=== PATIENT | female | born 1990 | race African-American/Black ===

== ENCOUNTER 2023-03-31 15:11 | Outpatient (AMB) | payer OTHER, SELFPAY ==
--- NOTE | 2023-03-31 15:21 | A.OFFVIS_ITS ---
Intake Vital Signs 03/31/23 15:24 Height 5 ft 7 in Weight 140 lb BMI 21.9 BP 140/80 H Pulse 72 Pulse Oximetry (%) 98 Intake Visit Reasons: Ref.Tapest[employer] Mobile /HIV Allergies No Known Allergies Allergy (Verified 03/31/23 15:25) HPI Ref.Tapest[employer] /HIV HPI Details She presents for initial evaluation for HIV care. She has been positive for several years she says. She reports getting care and medication from [facility] and I called there and they have no record of her getting medication in last two years. She has positive test [facility] I found 2012. She ws RPR negative then and chlamydia negative. She is homeless and referred by Amee CABALLERO at [facility] [phone]. She tells me her phone active tomorrow is [phone] and is now moving to [place] and wants to be seen at [facility]. She had previously been seen at [facility]. She is a transwoman. She has OUD and had been on methadone in past and is interested in it in future. She is very sleepy today. [facility] Medical History (Updated 03/31/23 @ 23:04 by Sheba Kent MD) HIV (human immunodeficiency virus infection) Opioid use disorder Review of Systems Const All systems reviewed & are unremarkable except as noted in HPI and below Physical Exam Vital Signs: Last Vital Signs Pulse 72 03/31/23 15:24 BP 140/80 H 03/31/23 15:24 Pulse Ox 98 03/31/23 15:24 BMI result Body Mass Index 21.9 Const General: cooperative Orientation/consciousness: patient oriented x3 HEENT Head: Yes normal to inspection Mouth: Normal oral and palatal mucosa present Eyes General: appearance normal, both eyes and all related structures Pupils: Equal, round and reactive pupils present Resp Effort & Inspection: normal respiratory effort Cardio Rate: regular rate Rhythm: regular rhythm GI Palpation (GI): Soft to palpation and nontender General: Yes no CVA tenderness Back/Spine/Pelvis Back: no CVA tenderness Skin General skin exam: no rashes or lesions noted Neuro General: patient oriented x3 Cranial nerves: Yes CN's II-XII intact bilaterally and Yes Equal, round and reactive pupils present Extrem General: Yes normal to inspection Psych Other: sleepy Appearance: grossly normal Assessment & Plan Assessment & Plan (1) HIV (human immunodeficiency virus infection): Code(s): B20 - Human immunodeficiency virus [HIV] disease Plan: I did start Biktarvy and sent to [facility]. See for labs when done (2) Opioid use disorder: Code(s): F11.90 - Opioid use, unspecified, uncomplicated Medications: New ghclpkibt-vxrzbudc-xkbbydf ala 50-200-25 mg (Biktarvy) 1 tab PO DAILY 30 days 30 tabs 0RF Coding Level of Care Code New Pt Level 3 (92065) Diagnoses HIV (human immunodeficiency virus infection) B20 Opioid use disorder F11.90
[2023-03-31 15:24] VITALS: BP 140/80; PULSE 72; O2SAT 98; BMI 21.9
== END 2023-03-31 15:44 | disposition home or self-care (01) ==
LOC: HO.HID 15:11
PROVIDERS: Visit Provider Internal Medicine
DX: B20 Human immunodeficiency virus [HIV] disease (principal); F11.90 Opioid use, unspecified, uncomplicated
CPT/HCPCS: 99203

== ENCOUNTER → 2023-03-31 15:11 | Outpatient (BNVA) | payer OTHER, SELFPAY | PROVIDERS: Visit Provider Internal Medicine | DX: B20 Human immunodeficiency virus [HIV] disease (principal); F11.20 Opioid dependence, uncomplicated; Z59.00 Homelessness unspecified | CPT/HCPCS: 99202 ==

== ENCOUNTER 2023-04-22 14:54 | Outpatient (REF) | payer OTHER, SELFPAY ==
[2023-04-22 16:08] LABS: MANUAL DIFF FLAG NO
[2023-04-22 16:12] LABS: Basophils Percent Auto 0.7 % (0-2); Eosinophils Absolute Auto 0.1 X10*3/uL (0.0-0.4); Eosinophils Percent Auto 1.2 % (0-4); Hematocrit 35.8 % (37.0-47.0); Hemoglobin 11.6 g/dl (12.0-16.0); Imm Gran Abs Auto 0.01 X10*3/uL (0.00-0.03); Imm Gran Pct Auto 0.2 % (0.0-0.4); Lymphocytes Absolute Auto 1.3 X10*3/uL (1.2-4.9); Lymphocytes Percent Auto 30.9 % (20-40); Mean Corpuscular HGB Conc 32.4 g/dl (31.0-35.0); Mean Corpuscular Hemoglobin 28.7 pg (27.0-33.0); Mean Corpuscular Volume 88.6 fL (80.0-98.0); Mean Platelet Volume 9.7 fL (9.4-12.3); Monocytes Absolute Auto 0.5 X10*3/uL (0.1-1.2); Monocytes Percent Auto 11.1 % (2-11); Neutrophils Absolute Auto 2.4 x10*3/uL (2.0-8.3); Neutrophils Percent Auto 55.9 % (45-73); Platelet Count 306 X10*3/uL (160-400); Red Blood Count 4.04 X10*6/uL (4.20-5.50); Red Cell Distribution Width 11.6 % (11.0-16.0); White Blood Count 4.3 X10*3/uL (4.8-10.8)
[2023-04-22 16:24] LABS: Alanine Aminotransferase 18 U/L (0-31); Albumin Level 3.8 g/dL (3.5-5.0); Alkaline Phosphatase 71 U/L (39-117); Anion Gap 10 (12-20); Aspartate Amino Transferase 29 U/L (5-31); Bilirubin Direct 0.2 mg/dL (0.0-0.5); Bilirubin Total 0.5 mg/dL (0.0-1.0); Blood Urea Nitrogen 17 mg/dL (9-16); Calcium 9.3 mg/dL (8.4-10.2); Carbon Dioxide 26 mmol/L (22-29); Chloride 105 mmol/L (96-108); Estimated Glomerular Filt Rate 52; Glucose Random 102 mg/dL (60-115); Potassium 4.3 mmol/L (3.3-5.1); Sodium 137 mmol/L (135-145)
[2023-04-23 03:45] LABS: Syphilis Screen Nonreactive (Nonreactive)
[2023-04-23 04:10] LABS: HBS Num1 46.87 mIU/mL (0-7.99); HBc Num1 0.06 S/CO (0.00-0.79); HBsAGNum1 0.36 S/CO (0.00-0.99); Hepatitis A Antibody IgG REACTIVE (Nonreactive); Hepatitis B Core Antibody Nonreactive (Nonreactive); Hepatitis B Surface Antigen Negative (Negative); ~Hepatitis A Antibody IgG 3.29 S/CO (0.00-0.99); ~Hepatitis B Surface Antibody REACTIVE (Nonreactive)
[2023-04-23 10:38] LABS: Absolute CD3 Count 1293 cells/uL (840-3060); Absolute CD4 Count 634 cells/uL (490-1740); Absolute CD8 Count 621 cells/uL (180-1170); Absolute Lymphocytes 1465 cells/uL (850-3900); CD4 CD8 Ratio 1.02 (0.86-5.00); Percent CD3 Cells 88 % (57-85); Percent CD4 Cells 43 % (30-61); Percent CD8 Cells 42 % (12-42)
[2023-04-23 13:13] LABS: Mumps Virus IgG Antibody <9.00 AU/mL; Rubella IgG Antibody 4.39 Index; Rubeola IgG (Measles) >300.00 AU/mL; Toxoplasma IgG Antibody <7.20 IU/mL; Toxoplasma IgM Antibody <8.00 AU/mL
[2023-04-23 16:08] LABS: HIV RNA PCR Qn Copies 9650 copies/mL (NOT DETECTED); HIV RNA PCR Qn Log Copies 3.98 (NOT DETECTED)
[2023-04-25 05:12] LABS: TS Negative Control Passed; TS Panel A 0; TS Panel B 0; TS Positive Control Passed; TSpotTB Negative (Negative)
[2023-04-26 02:59] LABS: C. Trachomatis RNA TMA, Throat NOT DETECTED; N. gonorrhoeae RNA TMA, Throat NOT DETECTED
[2023-04-29 23:39] LABS: Glucose-6-Phosphate Dehydrogen 2.2 U/g Hgb (7.0-20.5)
[2023-05-06 19:33] LABS: HIV Genotype DETECTED
== END 2023-04-22 14:55 | disposition home or self-care (01) ==
LOC: HO.HHCL 14:54
PROVIDERS: Visit Provider Internal Medicine
DX: B20 Human immunodeficiency virus [HIV] disease (principal)
CPT/HCPCS: 36415; 80053; 82248; 82955; 85025; 86359; 86360; 86481; 86704; 86706; 86708; 86735; 86762; 86765; 86777; 86778; 86780; 86787; 87340; 87491; 87536; 87591; 87900; 87901; 87906

== ENCOUNTER 2024-10-13 12:14 | Outpatient (REF) | payer MEDICAID, SELFPAY ==
[2024-10-13 13:33] LABS: Basophils Percent Auto 0.6 % (0-2); Eosinophils Absolute Auto 0.1 X10*3/uL (0.0-0.4); Eosinophils Percent Auto 1.1 % (0-4); Hematocrit 37.1 % (37.0-47.0); Hemoglobin 12.5 g/dl (12.0-16.0); Imm Gran Abs Auto 0.06 X10*3/uL (0.00-0.03); Imm Gran Pct Auto 1.1 % (0.0-0.4); Lymphocytes Absolute Auto 1.7 X10*3/uL (1.2-4.9); Lymphocytes Percent Auto 31.3 % (20-40); MANUAL DIFF FLAG SCAN; Mean Corpuscular HGB Conc 33.7 g/dl (31.0-35.0); Mean Corpuscular Hemoglobin 29.6 pg (27.0-33.0); Mean Corpuscular Volume 87.9 fL (80.0-98.0); Monocytes Absolute Auto 0.4 X10*3/uL (0.1-1.2); Monocytes Percent Auto 8.2 % (2-11); Neutrophils Absolute Auto 3.1 x10*3/uL (2.0-8.3); Neutrophils Percent Auto 57.7 % (45-73); PLT CLUMP 1; Red Blood Count 4.22 X10*6/uL (4.20-5.50); SCAN SMEAR FLAG 1
[2024-10-13 13:34] LABS: White Blood Count 5.3 X10*3/uL (4.8-10.8)
[2024-10-13 13:39] LABS: Alanine Aminotransferase 43 U/L (0-31); Albumin Level 4.2 g/dL (3.5-5.0); Alkaline Phosphatase 106 U/L (39-117); Anion Gap 12 (12-20); Aspartate Amino Transferase 54 U/L (5-31); Bilirubin Total 0.5 mg/dL (0.0-1.0); Blood Urea Nitrogen 19 mg/dL (9-16); Calcium 9.1 mg/dL (8.4-10.2); Carbon Dioxide 21 mmol/L (22-29); Chloride 106 mmol/L (96-108); Cholesterol 172 mg/dL (<200); Estimated Glomerular Filt Rate 36; Glucose Random 97 mg/dL (60-115); HDL Cholesterol 46 mg/dL (>40); LDL Cholesterol Calculated 98 mg/dL (<100); Potassium 4.3 mmol/L (3.3-5.1); Sodium 135 mmol/L (135-145); Total Protein 9.3 g/dL (6.5-8.0); Triglycerides 143 mg/dL (<150)
[2024-10-13 13:40] LABS: Color Urine Yellow; Glucose Urine UA Negative (Negative); Leukocyte Esterase Urine Negative (Negative); Nitrite Urine Negative (Negative); PH 5.5 (5.0-9.0); Specific Gravity - Urine 1.015 (1.005-1.025); UMIC TRIGGER UACC YES; Urine Blood Negative (Negative); Urine Ketones Negative (Negative); Urine Protein 30 (1+) mg/dL (Neg-Trace)
[2024-10-13 13:43] LABS: Appearance Urine Hazy
[2024-10-13 13:45] LABS: Bacteria Urine None Seen (None Seen); Hyaline Casts Urine 0-2 /LPF (0-2); RBC Urine 0-2 /HPF (0-2); WBC Urine 0-5 /HPF (0-5)
[2024-10-13 13:59] LABS: Mean Platelet Volume 10.4 fL (9.4-12.3); Platelet Count 241 X10*3/uL (160-400); SLIDE REVIEW VERIFIED
[2024-10-13 14:05] LABS: Reflex LDLD? No
[2024-10-13 16:20] LABS: CT PCR NOT DETECTED (Not Detect.); NG PCR NOT DETECTED (Not Detect.)
[2024-10-14 03:31] LABS: Syphilis Screen Nonreactive (Nonreactive)
[2024-10-14 03:38] LABS: ~HepC Num1 15.87 S/CO (0.00-0.79); ~Hepatitis C Antibody Reactive (Nonreactive)
[2024-10-16 08:29] LABS: TS Negative Control Passed; TS Panel A 0; TS Panel B 1; TS Positive Control Passed; TSpotTB Negative (Negative)
[2024-10-17 13:34] LABS: HCV Log PCR 5.77 Log IU/mL (NOT DETECTED); HepC Viral Load 595000 IU/mL (NOT DETECTED)
[2024-10-17 14:54] LABS: HIV RNA PCR Qn Copies NOT DETECTED copies/mL (NOT DETECTED); HIV RNA PCR Qn Log Copies NOT DETECTED (NOT DETECTED)
[2024-10-18 18:13] LABS: Absolute CD3 Count 1092 cells/uL (840-3060); Absolute CD4 Count 444 cells/uL (490-1740); Absolute CD8 Count 596 cells/uL (180-1170); Absolute Lymphocytes 1187 cells/uL (850-3900); CD4 CD8 Ratio 0.74 (0.86-5.00); Percent CD3 Cells 92 % (57-85); Percent CD4 Cells 37 % (30-61); Percent CD8 Cells 50 % (12-42)
== END 2024-10-13 12:15 | disposition home or self-care (01) ==
LOC: HO.HHCL 12:14
PROVIDERS: Visit Provider Internal Medicine
DX: Z21 Asymptomatic human immunodeficiency virus [HIV] infection status (principal)
CPT/HCPCS: 36415; 80053; 80061; 81001; 85025; 86359; 86360; 86481; 86780; 86803; 87491; 87522; 87536; 87591

== ENCOUNTER 2024-10-17 09:26 | Emergency (ER) | payer OTHER, SELFPAY ==
--- NOTE | ~2024-10-17 | CT_ITS ---
EXAMINATION: CT PELVIS WITH CONTRAST CLINICAL INFORMATION: Perirectal abscess. COMPARISON: None available. TECHNIQUE: Helical scanning was performed with submillimeter collimation through the pelvis with the use of oral contrast and during bolus intravenous injection of 85 mL of Omnipaque 350 intravenous contrast. Sagittal and coronal multiplanar 2-D reconstructions were obtained. This CT examination was performed using dose optimization techniques as appropriate, variously including the following: *Automated exposure control *Adjustment of mA and/or kV according to patient size (this includes techniques or standardized protocols for targeted exams where dose is matched to indication/reason for exam; i.e. extremities or head) *Use of iterative reconstruction technique DLP: 454 mGy centimeter. FINDINGS: PELVIS: There is a 2.6 cm peripheral enhancing fluid collection in the posterior midline of the anus/perineum 6:00 position. No fluid collections in the pelvis. The appendix is normal. Abundant stool without intestinal obstruction pattern. Bladder is fluid-filled. No aneurysm or dissection distal abdominal aorta or iliac arteries. Nonspecific prominent inguinal lymph nodes. No acute fracture or dislocation in either hip. No acute fracture in the pelvis. No lytic or blastic lesions. No acute fracture or listhesis in the lower lumbar spine. OSSEOUS STRUCTURES: 2.6 cm abscess, 6:[address] the [address]us. CT/CT pelvis w IV con IMPRESSION: Unremarkable examination. Electronically signed by: Shiva Polanco MD 10/17/2024 03:10 PM [facility]
[2024-10-17 09:31] VITALS: BP 143/83; PULSE 88; RESP 20; TEMP 36.9; O2SAT 96; BMI 34.4
--- NOTE | 2024-10-17 13:10 | ED.SKABFB ---
HPI - Skin/Abscess/Foreign Bdy General Chief complaint: Skin/Abscess/Foreign Body Stated complaint: Abscess groin area Time Seen by Provider: 10/17/24 13:10 Source: patient, RN notes reviewed and old records reviewed Limitations: no limitations History of Present Illness ED Provider: Abilio Samson PA-C HPI narrative: 34 yo transwoman with history of HIV on HAART, opioid use disorder on methadone who presents to the ER for evaluation of a tender, enlarging region near the anus for the last 4-5 days. She reports the area is very tender and it has been getting bigger. She denies any drainage from the site. She denies any anal intercourse. Had a normal BM today. No fever or chills. No N/V/D or abdominal pain. MD complaint: abscess/boil Onset (ago): day(s) (5) Location: genitals Severity: moderate Severity scale (1-10): 6 Quality: stabbing Pain Consistency: constant Relieving factors: rest Exacerbating factors: palpation and movement Context: none Treatments prior to arrival: none Related Data Previous Rx's ?Medication ?Instructions ?Recorded bictegravir 50 mg-emtricitabine 1 tab PO DAILY 30 days #30 tabs 03/31/23 200 mg-tenofovir alafenam 25 mg tablet (Biktarvy) cephalexin 500 mg tablet 500 mg PO Q6H 7 days #28 tabs 10/17/24 doxycycline monohydrate 100 mg 100 mg PO BID #14 caps 10/17/24 capsule Allergies Allergy/AdvReac Type Severity Reaction Status Date / Time No Known Allergies Allergy Verified 10/17/24 09:34 Review of Systems Review of Systems: Yes all other systems are reviewed and are negative PMFSH Past Medical History Medical History (Updated 10/17/24 @ 15:18 by FEDERICO Kitchen) HIV (human immunodeficiency virus infection) Opioid use disorder Social History Social History (System 09/19/24 @ 10:50 by Rachel Cabrera) Advance Directives: No Advance Directives Information Provided: No Do you have a plan to hurt others: No Plan Physical Exam Vital Signs: Vital Signs: Last Vital Signs Temp 98.0 F 10/17/24 15:30 Pulse 82 10/17/24 15:30 Resp 16 10/17/24 15:30 BP 142/88 H 10/17/24 15:30 Pulse Ox 100 10/17/24 15:30 O2 Del Method Room Air 10/17/24 09:31 BMI result Body Mass Index 34.4 Appearance: Alert. Oriented X3. No acute distress. Head: normocephalic, atraumatic. Eyes: Pupils equal, round and reactive to light. ENT: Pharynx normal. No tonsillar swelling or exudate. Neck: Normal inspection. Neck supple. CVS: Normal heart rate and rhythm. Pulses normal. Respiratory: No respiratory distress. Breath sounds normal. Abdomen: Soft and nontender. +BS x4 Genitals: normal inspection of the penis and testicles. there is tenderness of the perineum with induration, no fluctuance. Skin: Skin warm and dry. Normal skin color. Normal skin turgor. No rashes. Extremities: No lower extremity edema. No joint swelling. Neuro/psych: Oriented X 3. No motor deficit. No sensory deficit. CN II-XII intact. Normal speech and cognition. Medications Administered Discontinued Medications Generic Name Dose Route Start Last Admin Trade Name Freq PRN Reason Stop Dose Admin Cephalexin HCl 500 mg 10/17/24 15:19 10/17/24 15:41 Cephalexin 500 Mg Capsule PO 10/17/24 15:20 500 mg ONCE ONE Administration Doxycycline Monohydrate 100 mg 10/17/24 15:19 10/17/24 15:41 Doxycycline Monohydrate 100 Mg Capsule PO 10/17/24 15:20 100 mg ONCE ONE Administration Iohexol 100 ml 10/17/24 14:31 10/17/24 14:36 Iohexol 350 Mg/Ml 100 Ml Infus..Btl IV 10/17/24 14:32 85 ml ONCE ONE Administration Medical Decision Making Medical Decision Making [facility] Narrative: 34 yo transwomen with history of HIV, unsure if compliant with HAART presenting with perianal pain and swelling. exam c/w indurated area in the perineum. concern for possible abscess labs reassuring. not septic. CT scan not showing any drainable collection will start on abx and have her f/u with PCP and general surgery given strict return precautions to return as this can develop into a life threatening infection Differential Diagnosis Differential Diagnoses: The differential diagnosis associated with the presentation includes perirectal abscess, patricia's gangrene, folliculitis, retained FB Admission/Observation Consideration of admission/observation: Escalation of care including admission/observation considered Lab Data [facility] Lab Attestation statement: I reviewed the patient's lab results. mild hyperglycemia no anion gap, no leukocytosis, mild anemia 10/17/24 13:48 10/17/24 13:48 Labs: Lab Results 10/17/24 Range/Units 13:48 WBC 7.7 (4.8-10.8) X10*3/uL RBC 4.20 (4.20-5.50) X10*6/uL Hgb 12.6 (12.0-16.0) g/dl Hct 37.6 (37.0-47.0) % MCV 89.5 (80.0-98.0) fL MCH 30.0 (27.0-33.0) pg MCHC 33.5 (31.0-35.0) g/dl RDW 11.9 (11.0-16.0) % Plt Count 253 (160-400) X10*3/uL MPV 9.9 (9.4-12.3) fL Immature Gran % (Auto) 0.5 H (0.0-0.4) % Neut % (Auto) 69.9 (45-73) % Lymph % (Auto) 19.9 L (20-40) % Hamblen % (Auto) 8.8 (2-11) % Eos % (Auto) 0.4 (0-4) % Baso % (Auto) 0.5 (0-2) % Lymph # (Auto) 1.5 (1.2-4.9) X10*3/uL Hamblen # (Auto) 0.7 (0.1-1.2) X10*3/uL Eos # (Auto) 0.0 (0.0-0.4) X10*3/uL Baso # (Auto) 0.0 (0.0-0.2) X10*3/uL Abs Immat Gran (auto) 0.04 H (0.00-0.03) X10*3/uL Absolute Neuts (auto) 5.4 (2.0-8.3) x10*3/uL Absolute Nucleated RBC 0.000 (0.0-0.012) X10*3/uL Nucleated RBC % (auto) 0.0 (0.0-0.2) /100WBC ESR 19 (0-20) MM/HR Sodium 138 (135-145) mmol/L Potassium 4.3 (3.3-5.1) mmol/L Chloride 108 (96-108) mmol/L Carbon Dioxide 22 (22-29) mmol/L Anion Gap 12 (12-20) BUN 14 (9-16) mg/dL Creatinine 1.36 (0.5-1.4) mg/dL Estim Creat Clear Calc 69.3 Estimated GFR 44 Random Glucose 140 H (60-115) mg/dL Calcium 9.1 (8.4-10.2) mg/dL Magnesium 1.8 (1.6-2.6) mg/dL Total Bilirubin 0.4 (0.0-1.0) mg/dL Direct Bilirubin 0.1 (0.0-0.5) mg/dL AST 45 H (5-31) U/L ALT 36 H (0-31) U/L Alkaline Phosphatase 99 (39-117) U/L C-Reactive Protein 0.84 H (< or = 0.50) mg/dL Total Protein 8.9 H (6.5-8.0) g/dL Albumin 3.9 (3.5-5.0) g/dL Independent Interpretation I performed an independent interpretation of an: CT Scan Interpretation: no rim enhancing lesion or appreciated stranding in the rectal area Radiology Impression Discussion of test interpretation with radiology: I have reviewed the radiologist's reading. External Record Review External record reviewed: Office record, Outpatient record and Prior outpatient labs Prescription Management I considered prescription management with: Pain Medication and Antibiotic Chronic Conditions Patient?s care impacted by: Other (HIV) Social Determinants Patient?s care significantly limited by Social Determinants of Health including: Problems related to primary support group and Other Social Determinant of Health Critical Care Time Critical Care Time Critical Care Time: No Discharge Plan Discharge Clinical Impression: Cellulitis Qualifiers: Site of cellulitis: buttock Qualified Code(s): L03.317 - Cellulitis of buttock Patient Disposition: Home, Self-Care Instructions: Cellulitis (ED), Warm Compress or Soak (ED) Additional Instructions: your labs and CT scan were reassuring. no abscess to drain Take the prescribed antibiotics as directed, complete the entire course and do not miss any doses use warm compresses several times per day If you develop new or worsening symptoms call 911 or come back to the ER for further evaluation. Prescriptions: New doxycycline monohydrate 100 mg capsule 100 mg PO BID Qty: 14 0RF cephalexin 500 mg tablet 500 mg PO Q6H 7 Days Qty: 28 0RF No Action Biktarvy 50-200-25 mg tablet 1 tab PO DAILY 30 Days Qty: 30 0RF Referrals: [facility] General Surgeons [Provider Group] Interventions: ED Discharge Assessment Last Done: 10/17/24 15:30 Discharge Date/Time: 10/17/24 15:30 Print Language: Sami
[2024-10-17 13:54] LABS: MANUAL DIFF FLAG NO
[2024-10-17 13:56] LABS: Basophils Percent Auto 0.5 % (0-2); Eosinophils Percent Auto 0.4 % (0-4); Hematocrit 37.6 % (37.0-47.0); Hemoglobin 12.6 g/dl (12.0-16.0); Imm Gran Abs Auto 0.04 X10*3/uL (0.00-0.03); Imm Gran Pct Auto 0.5 % (0.0-0.4); Lymphocytes Absolute Auto 1.5 X10*3/uL (1.2-4.9); Lymphocytes Percent Auto 19.9 % (20-40); Mean Corpuscular HGB Conc 33.5 g/dl (31.0-35.0); Mean Corpuscular Volume 89.5 fL (80.0-98.0); Mean Platelet Volume 9.9 fL (9.4-12.3); Monocytes Absolute Auto 0.7 X10*3/uL (0.1-1.2); Monocytes Percent Auto 8.8 % (2-11); Neutrophils Absolute Auto 5.4 x10*3/uL (2.0-8.3); Neutrophils Percent Auto 69.9 % (45-73); Platelet Count 253 X10*3/uL (160-400); Red Cell Distribution Width 11.9 % (11.0-16.0); White Blood Count 7.7 X10*3/uL (4.8-10.8)
[2024-10-17 14:10] LABS: Alanine Aminotransferase 36 U/L (0-31); Albumin Level 3.9 g/dL (3.5-5.0); Alkaline Phosphatase 99 U/L (39-117); Anion Gap 12 (12-20); Aspartate Amino Transferase 45 U/L (5-31); Bilirubin Direct 0.1 mg/dL (0.0-0.5); Bilirubin Total 0.4 mg/dL (0.0-1.0); Blood Urea Nitrogen 14 mg/dL (9-16); C Reactive Protein 0.84 mg/dL (< or = 0.50); Calcium 9.1 mg/dL (8.4-10.2); Carbon Dioxide 22 mmol/L (22-29); Chloride 108 mmol/L (96-108); Creatinine Clr Calc Pharmacy 69.3; Estimated Glomerular Filt Rate 44; Glucose Random 140 mg/dL (60-115); Magnesium 1.8 mg/dL (1.6-2.6); Potassium 4.3 mmol/L (3.3-5.1); Sodium 138 mmol/L (135-145); Total Protein 8.9 g/dL (6.5-8.0)
[2024-10-17 14:35] LABS: Erythrocyte Sedimentation Rate 19 MM/HR (0-20)
[2024-10-17] MEDS: iohexoL 350 MG/ML 100 ML INFUS..BTL IV (14:36)
[2024-10-17 15:30] VITALS: BP 142/88; PULSE 82; RESP 16; TEMP 36.7; O2SAT 100
[2024-10-17] MEDS: cephALEXin 500 MG CAPSULE PO (15:41)
[2024-10-17] MEDS: Doxycycline Monohydrate 100 MG CAPSULE PO (15:41)
== END 2024-10-17 15:30 | disposition home or self-care (01) ==
PROVIDERS: Physician Assistant; Emergency Provider Emergency Medicine Emergency Medical Services
DX: L03.317 Cellulitis of buttock (principal); B20 Human immunodeficiency virus [HIV] disease
CPT/HCPCS: 36415; 72193; 80048; 80076; 83735; 85025; 85652; 86140; 99282; 99284; Q9967

== ENCOUNTER → 2024-10-17 13:17 | Outpatient (BNV) | payer OTHER, SELFPAY | PROVIDERS: Emergency Provider Emergency Medicine Emergency Medical Services; Visit Provider Radiology Diagnostic Radiology | DX: K61.0 Anal abscess (principal) | CPT/HCPCS: 72193 ==

== ENCOUNTER 2024-11-15 14:33 | Outpatient (REF) | payer MEDICAID, SELFPAY ==
[2024-11-15 16:42] LABS: Anion Gap 12 (12-20); Blood Urea Nitrogen 17 mg/dL (9-16); Calcium 9.2 mg/dL (8.4-10.2); Carbon Dioxide 22 mmol/L (22-29); Chloride 107 mmol/L (96-108); Estimated Glomerular Filt Rate 33; Glucose Random 88 mg/dL (60-115); Potassium 4.8 mmol/L (3.3-5.1); Sodium 136 mmol/L (135-145)
== END 2024-11-15 14:34 | disposition home or self-care (01) ==
LOC: HO.HHCL 14:33
PROVIDERS: Visit Provider Internal Medicine Geriatric Medicine
DX: R79.89 Other specified abnormal findings of blood chemistry (principal)
CPT/HCPCS: 36415; 80048

== ENCOUNTER 2024-11-24 15:34 | Outpatient (AMB) | payer MEDICAID, SELFPAY ==
--- NOTE | 2024-11-24 16:00 | HO.NEPHOV ---
Vital Signs 11/24/24 16:05 Height 5 ft 7 in Weight 245 lb 2 oz BMI 38.4 BP 122/80 Blood Pressure Location Lt brachial Position Sitting Pulse 98 Pulse Source Pulse Oximeter Pulse Oximetry (%) 95 Oxygen Delivery Method Room Air Intake Visit Reasons: ENP: Elevated serum creatinine-Voicemail full Curtain Drier Required: No Accompanied by: Self / Same As Patient Allergies No Known Allergies Allergy (Verified 11/24/24 16:05) HPI Comments Details: 34 yo trans woman with history of HIV on HAART was seen in consultation for CKD. She has been HIV positive for several years ( at least close to 15 years). She claims to be compliant with her HAART. She has H/O Hepatitis C( untreated). She has CKD for sometime and her serum creatinine has gone up to 1.76. She claimed to be compliant with her anti retrovirals. She denied any hepatitis B infection. She denies any cardiac disease. She has H/O proteinuria. She denies any active drug use, nausea, vomiting, diarrhea, weight loss, night sweats, CAD, CVA, CHF, PAD, hypertension, DM, epistaxis, skin rashes, joint swelling, hematuria or edema. She had no specific complaints at the time of this office visit. [facility] Medical History (Updated 12/02/24 @ 18:31 by Reji Walter MD) HIV (human immunodeficiency virus infection) Opioid use disorder Surgical History H/O hand surgery Hx of hernia repair H/O knee surgery Family History Mother Diabetes Heart disease Hypertension Cancer Social History (Updated 11/24/24 @ 16:01 by Shruti Le MA) Alcohol intake: never Patient Tobacco Use Status: Never used Tobacco Review of Systems Const All systems reviewed & are unremarkable except as noted in HPI and below Physical Exam Vital Signs: Last Vital Signs Pulse 98 11/24/24 16:05 BP 122/80 11/24/24 16:05 Pulse Ox 95 11/24/24 16:05 Oxygen Delivery Method Room Air 11/24/24 16:05 BMI result Body Mass Index 38.4 Const General: comfortable and no acute distress Orientation/consciousness: patient oriented x3 HEENT Head: Yes normocephalic Mouth: Normal oral and palatal mucosa present Eyes EOM: EOMs intact bilaterally Neck Neck: Yes supple Resp Auscultation: clear to auscultation bilaterally Cardio Jugular venous distension: no JVD Rate: regular rate GI Palpation (GI): Soft to palpation Auscultation: normal bowel sounds General: Yes no CVA tenderness Back/Spine/Pelvis Back: no CVA tenderness Skin General skin exam: no rashes or lesions noted Neuro General: patient oriented x3 and moves all extremities Extrem General: Yes no pedal edema Results Reviewed Nephrology Results: Hgb 12.6 g/dl (12.0-16.0) 10/17/24 WBC 7.7 X10*3/uL (4.8-10.8) 10/17/24 Plt Count 253 X10*3/uL (160-400) 10/17/24 Sodium 136 mmol/L (135-145) 11/15/24 Potassium 4.8 mmol/L (3.3-5.1) 11/15/24 Chloride 107 mmol/L (96-108) 11/15/24 Carbon Dioxide 22 mmol/L (22-29) 11/15/24 BUN 17 mg/dL (9-16) H 11/15/24 Creatinine 1.76 mg/dL (0.5-1.4) H 11/15/24 Calcium 9.2 mg/dL (8.4-10.2) 11/15/24 Urine Protein 30 (1+) mg/dL (Neg-Trace) H 10/13/24 Assessment & Plan Assessment & Plan (1) MARIAMA (acute kidney injury): Code(s): N17.9 - Acute kidney failure, unspecified Category: Medical (2) HIV (human immunodeficiency virus infection): Code(s): B20 - Human immunodeficiency virus [HIV] disease Category: Medical Qualifiers: HIV symptom status: unspecified Qualified Code(s): Z21 - Asymptomatic human immunodeficiency virus [HIV] infection status (3) CKD stage 3a, GFR 45-59 ml/min: Code(s): N18.31 - Chronic kidney disease, stage 3a Category: Medical (4) Proteinuria: Code(s): R80.9 - Proteinuria, unspecified Category: Medical Qualifiers: Proteinuria type: other Qualified Code(s): R80.8 - Other proteinuria Plan Erikah likely has HIVAN. Differential diagnosis is quite broad at this point including medication related MARIAMA . I have ordered imaging studies as well as other W/U. She likely will need renal biopsy. She was encouraged to keep up with good hydration and avoid NSAID's. All these have been discussed in detail. Further management is pending evolving data. Answered all questions. Orders: Orders Cryoglobulin 2 Weeks N17.9 - Acute kidney failure, unspecified Complete Blood Count Auto Diff 2 Weeks N17.9 - Acute kidney failure, unspecified UA and rflx microscopic 2 Weeks N17.9 - Acute kidney failure, unspecified CK, Total+Isoenzymes, Serum 2 Weeks N17.9 - Acute kidney failure, unspecified Myeloperoxidase Antibody 2 Weeks N17.9 - Acute kidney failure, unspecified Complement C3 2 Weeks N17.9 - Acute kidney failure, unspecified Complement C4 2 Weeks N17.9 - Acute kidney failure, unspecified Phospholipase A2 Receptor Pnl 2 Weeks N17.9 - Acute kidney failure, unspecified Calcium 2 Weeks N17.9 - Acute kidney failure, unspecified US renal BI 2 Weeks N17.9 - Acute kidney failure, unspecified Hepatitis B Surface Antigen 2 Weeks N17.9 - Acute kidney failure, unspecified Hepatitis B Core Antibody 2 Weeks N17.9 - Acute kidney failure, unspecified Prothrombin Time INR 2 Weeks N17.9 - Acute kidney failure, unspecified Immunofixation Pnl, Serum 2 Weeks N17.9 - Acute kidney failure, unspecified Protein Creatinine Ratio, Ur 2 Weeks N17.9 - Acute kidney failure, unspecified Anti DNA DS Antibody 2 Weeks N17.9 - Acute kidney failure, unspecified Proteinase 3 PR3 Antibodies 2 Weeks N17.9 - Acute kidney failure, unspecified Anti Glomerular Basement Memb 2 Weeks N17.9 - Acute kidney failure, unspecified Streptolysin O Antibody 2 Weeks N17.9 - Acute kidney failure, unspecified Electrolytes 2 Weeks N17.9 - Acute kidney failure, unspecified Blood Urea Nitrogen 2 Weeks N17.9 - Acute kidney failure, unspecified Creatinine 2 Weeks N17.9 - Acute kidney failure, unspecified Coding Level of Care Code New Pt Level 4 (76826) Diagnoses MARIAMA (acute kidney injury) N17.9 HIV infection, unspecified symptom status Z21 HIV symptom status: unspecified CKD stage 3a, GFR 45-59 ml/min N18.31 Other proteinuria R80.8 Proteinuria type: other
[2024-11-24 16:05] VITALS: BP 122/80; PULSE 98; O2SAT 95; BMI 38.4
== END 2024-11-24 16:24 | disposition home or self-care (01) ==
LOC: HO.HKA 15:35
PROVIDERS: PCP Internal Medicine Geriatric Medicine; Referring Provider Internal Medicine Geriatric Medicine; Visit Provider Internal Medicine Nephrology
DX: N17.9 Acute kidney failure, unspecified (principal); Z21 Asymptomatic human immunodeficiency virus [HIV] infection status; N18.31 Chronic kidney disease, stage 3a; R80.8 Other proteinuria
CPT/HCPCS: 99204

== ENCOUNTER → 2024-11-24 15:34 | Outpatient (BNVA) | payer MEDICAID, SELFPAY | PROVIDERS: PCP Internal Medicine Geriatric Medicine; Referring Provider Internal Medicine Geriatric Medicine; Visit Provider Internal Medicine Nephrology | DX: Z21 Asymptomatic human immunodeficiency virus [HIV] infection status (principal); N18.31 Chronic kidney disease, stage 3a; N17.9 Acute kidney failure, unspecified; R80.8 Other proteinuria | CPT/HCPCS: 99202 ==

== ENCOUNTER 2024-11-30 13:48 | Outpatient (REF) | payer MEDICAID, SELFPAY | END 2024-11-30 13:49 | disposition home or self-care (01) | LOC: HO.HHCL 13:48 | PROVIDERS: Visit Provider Internal Medicine Nephrology | DX: Z13.89 Encounter for screening for other disorder (principal) ==

== ENCOUNTER 2024-12-04 13:38 | Outpatient (REF) | payer MEDICAID, SELFPAY ==
[2024-12-04 14:03] LABS: MANUAL DIFF FLAG NO
[2024-12-04 14:25] LABS: Basophils Percent Auto 0.2 % (0-2); Eosinophils Absolute Auto 0.1 X10*3/uL (0.0-0.4); Hematocrit 34.3 % (37.0-47.0); Hemoglobin 11.4 g/dl (12.0-16.0); Imm Gran Abs Auto 0.03 X10*3/uL (0.00-0.03); Imm Gran Pct Auto 0.4 % (0.0-0.4); Lymphocytes Absolute Auto 4.4 X10*3/uL (1.2-4.9); Lymphocytes Percent Auto 54.5 % (20-40); Mean Corpuscular HGB Conc 33.2 g/dl (31.0-35.0); Mean Corpuscular Hemoglobin 30.2 pg (27.0-33.0); Mean Platelet Volume 9.6 fL (9.4-12.3); Monocytes Percent Auto 12.4 % (2-11); Neutrophils Absolute Auto 2.6 x10*3/uL (2.0-8.3); Neutrophils Percent Auto 31.5 % (45-73); Platelet Count 268 X10*3/uL (160-400); Red Blood Count 3.77 X10*6/uL (4.20-5.50); Red Cell Distribution Width 12.4 % (11.0-16.0); White Blood Count 8.1 X10*3/uL (4.8-10.8)
[2024-12-04 14:28] LABS: Appearance Urine Clear; Color Urine Yellow; Glucose Urine UA Negative (Negative); Leukocyte Esterase Urine Negative (Negative); Nitrite Urine Negative (Negative); Specific Gravity - Urine 1.015 (1.005-1.025); UMIC TRIGGER UA YES; Urine Blood Negative (Negative); Urine Ketones Negative (Negative); Urine Protein 30 (1+) mg/dL (Neg-Trace)
[2024-12-04 14:30] LABS: Bacteria Urine None Seen (None Seen); Hyaline Casts Urine 0-2 /LPF (0-2); RBC Urine 0-2 /HPF (0-2); WBC Urine 0-5 /HPF (0-5)
[2024-12-04 14:38] LABS: INTERNATIONAL NORM RATIO 0.9 (0.9-1.1); Prothrombin Time 10.7 SEC (10.9-12.4)
[2024-12-04 15:28] LABS: Anion Gap 10 (12-20); Blood Urea Nitrogen 21 mg/dL (9-16); Carbon Dioxide 26 mmol/L (22-29); Chloride 105 mmol/L (96-108); Estimated Glomerular Filt Rate 38; Sodium 137 mmol/L (135-145)
[2024-12-04 16:35] LABS: Creatinine Urine 98.73 mg/dL; Protein/Creatinine Ratio, Ur 0.47 (<0.2); Total Protein Urine Random 46 mg/dL (<12)
[2024-12-05 04:55] LABS: HBc Num1 0.07 S/CO (0.00-0.79); HBsAGNum1 0.29 S/CO (0.00-0.99); Hepatitis B Core Antibody Nonreactive (Nonreactive); Hepatitis B Surface Antigen Negative (Negative)
[2024-12-05 10:28] LABS: Complement C3 136 mg/dL (83-193)
[2024-12-05 15:24] LABS: IgA 244 mg/dL (47-310); IgG 2689 mg/dL (600-1640); IgM 49 mg/dL (50-300)
[2024-12-05 18:03] LABS: Streptolysin O Antibody 497 IU/mL (<200)
[2024-12-07 14:09] LABS: Anti DNA DS Antibody 2 IU/mL; Anti Glomerular Basement Memb <1.0 AI; Myeloperoxidase Antibody <1.0 AI; Proteinase 3 PR3 Antibodies <1.0 AI
[2024-12-10 23:09] LABS: Cryoglobulin, Qual Negative (Negative)
[2024-12-14 23:08] LABS: Phospholipase A2 IgG ELISA <4 RU/mL; Phospholipase A2 IgG IFA NEGATIVE (NEGATIVE)
[2024-12-18 19:59] LABS: CK-BB None Detected (None Detected); CK-MB 1 % (<5); CK-MM 93 % (95-100); Creatine Kinase Isoenzyme Itrp MACRO CK TYPE 1; Creatine Kinase,Total,Serum 2210 U/L (20-239)
== END 2024-12-04 13:39 | disposition home or self-care (01) ==
LOC: HO.LAB 13:38
PROVIDERS: Visit Provider Internal Medicine Nephrology
DX: N17.9 Acute kidney failure, unspecified (principal); N18.31 Chronic kidney disease, stage 3a; R80.8 Other proteinuria; Z21 Asymptomatic human immunodeficiency virus [HIV] infection status
CPT/HCPCS: 36415; 80051; 81001; 82310; 82552; 82565; 82570; 82595; 82784; 83520; 84156; 84520; 85025; 85610; 86021; 86060; 86160; 86225; 86255; 86334; 86704; 87340

== ENCOUNTER 2025-02-23 10:16 | Outpatient (AMB) | payer OTHER, SELFPAY ==
--- NOTE | 2025-02-23 10:19 | HO.NEPHOV ---
Vital Signs 02/23/25 10:20 Height 5 ft 7 in Weight 225 lb BMI 35.2 BP 124/90 H Blood Pressure Location Lt brachial Position Sitting Pulse 94 Pulse Source Pulse Oximeter Pulse Oximetry (%) 95 Oxygen Delivery Method Room Air Intake Visit Reasons: 12/22/24 No Show-Conf Farm Helper Required: No Accompanied by: Other Relationship Allergies No Known Allergies Allergy (Verified 02/23/25 10:22) Do you need a note to return to daycare/school/sports/work: No HPI Comments Details: 34 yo trans woman with history of HIV on HAART was seen in follow up for CKD. She has been HIV positive for several years ( at least close to 15 years). She claims to be compliant with her HAART. She has H/O Hepatitis C( untreated). She has CKD for sometime and her serum creatinine has gone up to 1.76. She claimed to be compliant with her anti retrovirals. She denied any hepatitis B infection. She denies any cardiac disease. She has H/O proteinuria. She denies any active drug use, nausea, vomiting, diarrhea, weight loss, night sweats, CAD, CVA, CHF, PAD, hypertension, DM, epistaxis, skin rashes, joint swelling, hematuria or edema. She had no specific complaints at the time of this office visit. She is currently incarcerated and was accompanied by police officers. REPLACED BY [facility] Medical History HIV (human immunodeficiency virus infection) Opioid use disorder Surgical History H/O hand surgery Hx of hernia repair H/O knee surgery Family History Mother Diabetes Heart disease Hypertension Cancer Social History Alcohol intake: never Patient Tobacco Use Status: Never used Tobacco Review of Systems Const All systems reviewed & are unremarkable except as noted in HPI and below Physical Exam Vital Signs: Last Vital Signs Pulse 94 02/23/25 10:20 BP 124/90 H 02/23/25 10:20 Pulse Ox 95 02/23/25 10:20 Oxygen Delivery Method Room Air 02/23/25 10:20 BMI result Body Mass Index 35.2 Const General: comfortable and no acute distress Orientation/consciousness: patient oriented x3 HEENT Head: Yes normocephalic Mouth: Normal oral and palatal mucosa present Eyes EOM: EOMs intact bilaterally Neck Neck: Yes supple Resp Auscultation: clear to auscultation bilaterally Cardio Jugular venous distension: no JVD Rate: regular rate GI Palpation (GI): Soft to palpation Auscultation: normal bowel sounds General: Yes no CVA tenderness Back/Spine/Pelvis Back: no CVA tenderness Skin General skin exam: no rashes or lesions noted Neuro General: patient oriented x3 and moves all extremities Extrem General: Yes no pedal edema Results Reviewed Nephrology Results: Hgb, (12.0-16.0) 11.4 g/dl L 12/04/24 WBC, (4.8-10.8) 8.1 X10*3/uL 12/04/24 Plt Count, (160-400) 268 X10*3/uL 12/04/24 Sodium, (135-145) 137 mmol/L 12/04/24 Potassium, (3.3-5.1) 4.0 mmol/L 12/04/24 Chloride, (96-108) 105 mmol/L 12/04/24 Carbon Dioxide, (22-29) 26 mmol/L 12/04/24 BUN, (9-16) 21 mg/dL H 12/04/24 Creatinine, (0.5-1.4) 1.54 mg/dL H 12/04/24 Calcium, (8.4-10.2) 9.0 mg/dL 12/04/24 Urine Protein, (Neg-Trace) 30 (1+) mg/dL H 12/04/24 Urine Creatinine 98.73 mg/dL 12/04/24 Protein/Creatinin Ratio, (<0.2) 0.47 H 12/04/24 Assessment & Plan Assessment & Plan (1) CKD stage 3a, GFR 45-59 ml/min: Code(s): N18.31 - Chronic kidney disease, stage 3a Category: Medical (2) Proteinuria: Code(s): R80.9 - Proteinuria, unspecified Category: Medical Qualifiers: Proteinuria type: other Qualified Code(s): R80.8 - Other proteinuria Plan 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 Differential diagnosis is quite broad at this point including medication . I have ordered continued W/U. She likely will need renal biopsy. She was encouraged to keep up with good hydration and avoid NSAID's. All these have been discussed in detail. Further management is pending evolving data. Answered all questions. Orders: Orders Electrolytes 3 Months N18.31 - Chronic kidney disease, stage 3a, R80.8 - Other proteinuria Creatinine 3 Months N18.31 - Chronic kidney disease, stage 3a, R80.8 - Other proteinuria Complement C3 3 Months N18.31 - Chronic kidney disease, stage 3a, R80.8 - Other proteinuria Prothrombin Time INR 3 Months N18.31 - Chronic kidney disease, stage 3a, R80.8 - Other proteinuria Complete Blood Count Auto Diff 3 Months N18.31 - Chronic kidney disease, stage 3a, R80.8 - Other proteinuria Calcium 3 Months N18.31 - Chronic kidney disease, stage 3a, R80.8 - Other proteinuria Blood Urea Nitrogen 3 Months N18.31 - Chronic kidney disease, stage 3a, R80.8 - Other proteinuria Complement C4 3 Months N18.31 - Chronic kidney disease, stage 3a, R80.8 - Other proteinuria Cryoglobulin 3 Months N18.31 - Chronic kidney disease, stage 3a, R80.8 - Other proteinuria ANCA Vasculitides 3 Months N18.31 - Chronic kidney disease, stage 3a, R80.8 - Other proteinuria Protein Creatinine Ratio, Ur 3 Months N18.31 - Chronic kidney disease, stage 3a, R80.8 - Other proteinuria Coding Level of Care Code Est Pt Level 4 (30191) Diagnoses CKD stage 3a, GFR 45-59 ml/min N18.31 Other proteinuria R80.8 Proteinuria type: other
[2025-02-23 10:20] VITALS: BP 124/90; PULSE 94; O2SAT 95; BMI 35.2
== END 2025-02-23 11:04 | disposition home or self-care (01) ==
PROVIDERS: PCP Internal Medicine Geriatric Medicine; Visit Provider Internal Medicine Nephrology
DX: N18.31 Chronic kidney disease, stage 3a (principal); R80.8 Other proteinuria
CPT/HCPCS: 99214

== ENCOUNTER 2025-05-14 09:39 | Outpatient (AMB) | payer OTHER, SELFPAY ==
--- NOTE | 2025-05-14 09:32 | HO.NEPHOV ---
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 She has been HIV positive for several years ( at least close to 15 years). She claims to be compliant with her HAART. She has H/O Hepatitis C( untreated). She has CKD for sometime and her serum creatinine has gone up to 1.76. She claimed to be compliant with her anti retrovirals. She denied any hepatitis B infection. She denies any cardiac disease. She has H/O proteinuria. She denies any active drug use, nausea, vomiting, diarrhea, weight loss, night sweats, CAD, CVA, CHF, PAD, hypertension, DM, epistaxis, skin rashes, joint swelling, hematuria or edema. She had no specific complaints at the time of this office visit. She is currently incarcerated and was seen by [facility] Medical History HIV (human immunodeficiency virus infection) Opioid use disorder Surgical History H/O hand surgery Hx of hernia repair H/O knee surgery Family History Mother Diabetes Heart disease Hypertension Cancer Social History Alcohol intake: never Patient Tobacco Use Status: Never used Tobacco Review of Systems Const All systems reviewed & are unremarkable except as noted in HPI and below Telehealth Telehealth Telehealth Platform: Telephone Location of provider rendering services: practice address Location of patient: address on file Patient Identification confirmed using: Name, : Yes Telehealth method: voice only Patient verbally consented to treatment: Yes Patient verbally consented to billing insurance company: Yes Patient informed of any privacy concerns related to visit: No Minutes spent on Phone/Video with Pt.: 10 Results Reviewed Nephrology Results: Hgb, (12.0-16.0) 11.4 g/dl L 12/04/24 WBC, (4.8-10.8) 8.1 X10*3/uL 12/04/24 Plt Count, (160-400) 268 X10*3/uL 12/04/24 Sodium, (135-145) 137 mmol/L 12/04/24 Potassium, (3.3-5.1) 4.0 mmol/L 12/04/24 Chloride, (96-108) 105 mmol/L 12/04/24 Carbon Dioxide, (22-29) 26 mmol/L 12/04/24 BUN, (9-16) 21 mg/dL H 12/04/24 Creatinine, (0.5-1.4) 1.54 mg/dL H 12/04/24 Calcium, (8.4-10.2) 9.0 mg/dL 12/04/24 Urine Protein, (Neg-Trace) 30 (1+) mg/dL H 12/04/24 Urine Creatinine 98.73 mg/dL 12/04/24 Protein/Creatinin Ratio, (<0.2) 0.47 H 12/04/24 Assessment & Plan Assessment & Plan (1) CKD stage 3a, GFR 45-59 ml/min: Code(s): N18.31 - Chronic kidney disease, stage 3a Category: Medical (2) Proteinuria: Code(s): R80.9 - Proteinuria, unspecified Category: Medical Qualifiers: Proteinuria type: other Qualified Code(s): R80.8 - Other proteinuria (3) HIV (human immunodeficiency virus infection): Code(s): B20 - Human immunodeficiency virus [HIV] disease Category: Medical Qualifiers: HIV symptom status: unspecified Qualified Code(s): Z21 - Asymptomatic human immunodeficiency virus [HIV] infection status Plan 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 Differential diagnosis is quite broad at this point including medication- renal function stable now . W/U was reviewed . She likely will need renal biopsy, if creatinine goes up . She was encouraged to keep up with good hydration and avoid NSAID's. All these have been discussed in detail. Further management is pending evolving data. Answered all questions. Orders: Orders Protein Creatinine Ratio, Ur 6 Months N18.31 - Chronic kidney disease, stage 3a, R80.8 - Other proteinuria, Z21 - Asymptomatic human immunodeficiency virus [HIV] infection status Electrolytes 6 Months N18.31 - Chronic kidney disease, stage 3a, R80.8 - Other proteinuria, Z21 - Asymptomatic human immunodeficiency virus [HIV] infection status Blood Urea Nitrogen 6 Months N18.31 - Chronic kidney disease, stage 3a, R80.8 - Other proteinuria, Z21 - Asymptomatic human immunodeficiency virus [HIV] infection status Creatinine 6 Months N18.31 - Chronic kidney disease, stage 3a, R80.8 - Other proteinuria, Z21 - Asymptomatic human immunodeficiency virus [HIV] infection status Coding Level of Care Code Tele Est Pt Level 4 (99246) Diagnoses CKD stage 3a, GFR 45-59 ml/min N18.31 Other proteinuria R80.8 Proteinuria type: other HIV infection, unspecified symptom status Z21 HIV symptom status: unspecified
== END 2025-05-14 10:36 | disposition home or self-care (01) ==
LOC: HO.HKA 09:39
PROVIDERS: PCP Internal Medicine Geriatric Medicine; Visit Provider Internal Medicine Nephrology
DX: N18.31 Chronic kidney disease, stage 3a (principal); R80.8 Other proteinuria; Z21 Asymptomatic human immunodeficiency virus [HIV] infection status
CPT/HCPCS: 98014